=== PATIENT | female | born 1970 | race Caucasian/White ===

== ENCOUNTER 2020-11-15 13:37 | Emergency (ER) | payer OTHER ==
[~2020-11-15] VITALS: Ht 162.6 cm; Wt 116.6 kg
[2020-11-15] MEDS ORDERED: BUPROPION HCL75 MG PO (13:44)
--- NOTE | 2020-11-15 19:55 | EKG ---
[facility] [address] [facility] [place], [place] [address] Signed Normal sinus rhythm with sinus arrhythmia Inferior infarct , age undetermined Abnormal ECG No previous ECGs available Confirmed by ROSA BOONE MD ([id number] on 11/15/2020 7:55:21 PM Electronically Signed By: ROSA BOONE MD 11/15/201954 PATIENT NAME: DANILO MAGANA Electrocardiogram DATE OF : 72 PHYSICIAN: ROSA BOONE MD REPORT #: [id number] REPORT IS CONFIDENTIAL AND NOT TO BE RELEASED WITHOUT AUTHORIZATION
== END 2020-11-15 17:10 | disposition home or self-care (01) ==
LOC: ED 13:37
DX: U07.1 COVID-19 (principal); J12.82 Pneumonia due to coronavirus disease 2019; Z87.891 Personal history of nicotine dependence; Z88.0 Allergy status to penicillin
CPT/HCPCS: 71045; 80048; 85025; 93005; 93010; 99285-25; M0243; Q0244